=== PATIENT | male | born 1950 | race Caucasian/White ===

== ENCOUNTER 2017-12-27 10:32 | Outpatient (CLI) | payer MEDICARE, OTHER | END 2017-12-27 10:33 | disposition home or self-care (01) | LOC: SC 10:32 | PROVIDERS: ATTEND Nurse Practitioner Family | DX: G47.33 Obstructive sleep apnea (adult) (pediatric) (principal) | CPT/HCPCS: 99214; G0463; 99212 ==

== ENCOUNTER 2018-12-29 09:40 | Outpatient (CLI) | payer MEDICARE, OTHER ==
--- NOTE | 2018-12-29 10:44 | SLEEP CARE CONSULTATION ---
Information from patient questionnaire entered by Sarah Garcia. I have reviewed and concur with the information entered by Sarah Garcia. This document represents the service I personally performed and the decisions made by me, Dottie Camp, RN, MSN, RN LABOR DELIVERY. - History of Present Illness HPI: MONTSE ROUSE JR was diagnosed to have severe, AHI 42, obstructive sleep apnea-hypopnea syndrome and returned today for BIPAP therapy annual follow-up. He continues to have skin irritation from the mask which is worse during the summer due to increase in sweating at night. He is sleeping in cold room due to spouse's hot flashes. He did not try cloth barriers discussed at last visit. Equipment obtained from: [facility] Mask style: Full face Mask brand: Resmed Backup mask available: Yes Last cushion change: about a month to 6 weeks. - Compliance Data Reviewed with Patient Average duration of nightly device use: 9.1 Compliance rate % (4+hrs/night over past 30 nights): 99.4 (180 days) Current pressure setting (cmH2O): 20/15 Humidity settin Heated hose settin Average residual AHI: 2.3 Average large leak: 1 hr 22 secs - Subjective Missed days of use due to: reports: other (no electricity) Patient concerns: reports: air blowing in eyes (seldom and only occurs when headstrap needs replaced.), nasal congestion (chronic but does not interfer with use of Bi PAP.). denies: aerophagia, mask discomfort, mask leak noise, condensation in mask/hose, dry mouth, nose, throat, epistaxis Observed to snore while using device: No (occasional noted by spouse) Current pressure setting perceived as: comfortable On therapy, patient: reports: sleeping better, awakening more refreshed, being more awake and alert during the day, more rested overall. denies: drowsiness while driving Initial [place] Sleepiness Scale score: 2 Current [place] Sleepiness Scale score: 5 - Review of Systems Cardiovascular: reports: high blood pressure, have to sleep sitting up (if no CPAP) Respiratory: reports: shortness of breath (COPD), other: (sinus/nose drainage) Ear/Nose/Throat: reports: nasal congestion, dry mouth/throat (mouth breather), wisdom teeth removed Endocrine: reports: thyroid disease Immunologic: reports: sneezing, allergies to food or environment (molds and grass) - Allergies/Medications Medication Name (generic/name brand) Strength & Dosage Loratadine 10mg tab one daily Ketoconaole Topical 2% topical cream Apply to affected areas BID prn Desonide 0.05% topical cream Apply to affected areas prn Proventil HFA CFC free 90 mcg/inh Two puffs q4hr prn Sudafed 30mg tab two every 6hr prn Melatonin 5mg tab one daily at bedtime Vitamin D3 2000unit cap five daily Centrum Silver Therapeutic Multivitamin Tab chewable one daily Pseudoephedrine HCI 60mg tab one every 6hr prn Ipratropium-Albuterol 0.5-2.5 (3) mg/3ml Inhale one ampule via nebulizer QID prn Aspirin 81mg tab one daily Levothyroxine Sodium 88mcg tab one daily in the am Metformin HCI ER 500mg one twice daily with meals Metoprolol Succinate ER 50mg tab one daily Simvastatin 20mg tab one daily * changing Sulfamethoxazole-Trimeth 800-160mg On daily for pulmonary prophylaxis Spiriva HandiHaler 18mcg inhalation cap. Inhale one cap daily Doxazosin Mesylate 4mg tab one daily No known drug allergies: No Allergies and home medications reviewed: Yes - Physical Examination Blood Pressure: 150/90 (140/80 at end of visit) Cuff size: long Heart Rate: 73 O2 Saturation: 96 Height: 5 ft 9 in Weight (kg): 166.015 kg Body Mass Index: 54.0 BMI Classification: Class 3 - Impression 1. Obstructive Sleep Apnea-Hypopnea Syndrome, severe, with good treatment compliance and good apnea control. On BIPAP therapy, there is improved sleep quality and continues to feel more rested overall. For mask irritation, he was again shown mask cloth barriers and contact information. It seems the pad a cheek type maybe the best as it covers mask cushion as well as the head piece. I also showed him other mask styles to try that may have less contact on the skin to reduce chance of skin irritation. He would like to try the Maryam View full face mask but concerned if it will fit or control mask leaks as good as his current [employer] full face. I fitted him with a large Maryam View to see if will work better in control of mask leaks and less interface connecting to face. I will also wrote a prescription so cushion can be replaced if patient finds it works better. To reduce sweating at night, he was shown how his heated was on and he thought off. He does not use the water in reservoir and had the humidity off. Thus he was shown how to turn off the heated hose with a sample device. Patient's apnea severity and rationale for treatment to reduce apnea, improve sleep quality and reduce cardiovascular and cerebrovascular events was reviewed. I also reviewed the benefit of consistent device use of BIPAP for hypertension]. - Plan Plan: Continue BiPAP pressure at 20/15 cm H2O. Notify me if snoring with the mask or feeling that the pressure is too much or too little. Attempt to lose weight. Try new Maryam View mask / large Consider cloth barriers Turn off heated hose Return for follow-up in one year, or sooner if concerns arise. I spent 100% of this 31 minute visit face to face with the patient with greater than 50% of this was spent time counseling the patient and coordination of care.
[2018-12-29 10:45] VITALS: BP 150/90
== END 2018-12-29 09:41 | disposition home or self-care (01) ==
LOC: SC 09:40
PROVIDERS: ATTEND Nurse Practitioner Family
DX: G47.33 Obstructive sleep apnea (adult) (pediatric) (principal)
CPT/HCPCS: 99214; G0463; 99212